=== PATIENT | female | born 1955 | race Caucasian/White ===

== ENCOUNTER 2022-02-16 10:25 | Day surgery (SDC) | payer MEDICARE, BC ==
[~2022-02-16 10:25] MED LIST: Lactated Ringers 1,000 ML IV SCH
[2022-02-16] MEDS ORDERED: Lactated Ringers 1,000 ML IV ONE (10:51)
[2022-02-16] MEDS ORDERED: DIPRIVAN 200 MG/20 ML IV ONE (11:34)
[2022-02-16] MEDS ORDERED: Versed 2 MG/2 ML Injection ONE (11:34)
[2022-02-16] MEDS ORDERED: Xylocaine-Mpf 2% 5 Ml Vial ONE (11:34)
[2022-02-16 12:58] VITALS: O2SAT 97
[2022-02-16 13:00] VITALS: BP 134/88; PULSE 67
--- NOTE | 2022-02-18 09:03 | OP ---
PROCEDURE DATE/TIME: 02/16/2022 1136 PREOPERATIVE DIAGNOSES: 1) Gastroesophageal reflux disease. 2) Family history of esophageal cancer. POSTOPERATIVE DIAGNOSES: 1) Hiatal hernia. 2) Gastroesophageal reflux disease with esophagitis. 3) Mild gastritis. PROCEDURE: EGD with biopsy. PROCEDURE PERFORMED BY: Erin Zamarripa M.D. ESTIMATED BLOOD LOSS: Minimal. ANESTHESIA: MAC. SPECIMENS: 1) Antral biopsy. 2) Distal esophagus biopsy. COMPLICATIONS: None. HISTORY: This is a patient who presents with gastroesophageal reflux disease symptoms. She also has a family history of esophageal cancer. She continues to have reflux despite medical treatment and so she was referred for EGD. Risks, benefits, alternatives discussed with her in detail. She understands, agrees and would like to proceed. Her H&P and consent reviewed and completed. DESCRIPTION OF PROCEDURE: A complete time out was performed. The patient was laid in the left lateral decubitus position. Anesthesia induced. The scope was then inserted into the mouth, oropharynx down into the esophagus, stomach and to the approximate second portion of the duodenum. The duodenum was normal. The scope was carefully withdrawn back into the stomach. The patient had some subtle mild gastritis mainly in the antrum and the lower body of the stomach. On retroflex view she does have an obvious hiatal hernia this is small sliding type. She did not have any ulcerations or masses in her stomach. We took antral biopsies and sent these to pathology. Confirmed that the sites were hemostatic. The scope is then withdrawn back into the distal esophagus. She does have some mild reflux changes here. She does not have any significant signs of advanced Dickey's disease but due to her clinical findings and family history I did take some biopsies at the distal esophagus to rule out early Dickey's disease. These sites are hemostatic. The scope was further withdrawn and the remainder of her esophagus is normal. Please note that her gastroesophageal junction is approximately is at approximately 37 cm. PLAN: The final plan regarding next EGD will be based on the patient's symptoms and her final pathology report. We have also discussed with the patient lifestyle and diet changes to decrease her reflux disease and she will be following up with me in the office as well.
== END 2022-02-16 13:00 | disposition home or self-care (01) ==
LOC: SDC 10:25
PROVIDERS: ATTEND Surgery
DX: K44.9 Diaphragmatic hernia without obstruction or gangrene (principal); K29.70 Gastritis, unspecified, without bleeding; K21.9 Gastro-esophageal reflux disease without esophagitis; Z80.0 Family history of malignant neoplasm of digestive organs
CPT/HCPCS: J2250; J2704

== ENCOUNTER 2022-05-18 10:18 | Day surgery (SDC) | payer MEDICARE, BC ==
[2022-05-18] MEDS ORDERED: Lactated Ringers 1,000 ML IV SCH (10:30)
[2022-05-18] MEDS ORDERED: Lactated Ringers 1,000 ML IV ONE ×2 (10:30→13:12)
[2022-05-18] MEDS ORDERED: DIPRIVAN 200 MG/20 ML IV ONE ×3 (12:41→13:09)
[2022-05-18 14:30] VITALS: BP 163/94; PULSE 67; O2SAT 98
--- NOTE | 2022-05-21 09:46 | OP ---
PROCEDURE DATE/TIME: 05/18/2022 1236 PREOPERATIVE DIAGNOSES: 1) History of difficult and incomplete colonoscopy as well as colonoscopy with poor prep. 2) History of polyps. POSTOPERATIVE DIAGNOSES: 1) Internal and external severe hemorrhoidal disease with benign anal tag. 2) Colon polyp. 3) Tortuous colon. 4) Poor prep. PROCEDURE: Colonoscopy with cold forceps polypectomy. PROCEDURE PERFORMED BY: Erin Zamarripa M.D. ANESTHESIA: MAC. ESTIMATED BLOOD LOSS: None. COMPLICATIONS: None. SPECIMEN: None. HISTORY: This is a 67-year-old who has had relatively recent colonoscopies. Her first colonoscopy was incomplete due to significant tortuosity as well as poor prep and then her second colonoscopy had poor prep as well with polyps and she was recommended to have another colonoscopy in a short interval due to the poor preparation. The patient was seen preoperatively. Her H&P and consent reviewed with her and confirmed. All questions answered to the patient's satisfaction. DESCRIPTION OF PROCEDURE: She was then brought back to the endoscopy suite, laid in left lateral decubitus position. A complete time out performed. First a rectal inspection and then exam was done. The patient had some benign anal tag tissue. She also had severe external and hemorrhoidal disease. She does not have any blood at this time and there were no concerning masses. The scope was then inserted and gently advanced to the level of the cecum. The patient's colon was quite tortuous with angulation. I used a very minimal air approach. We went to the cecum and this looked very well and the scope was able to be gently navigated to the cecum without any significant difficulties. The patient's prep was fair. She did have quite a bit of stool throughout her colon. Unfortunately, the prep in the cecum was very poor and not satisfactory so it looked fair in most places but the cecum was definitely very poor. She had other areas of her colon that the prep was not ideal as well. A significant lesion could be missed in an area like the cecum where the prep was very poor. Otherwise, I was able to see a quite a bit of her colonic mucosa throughout the rest of the colon. I did use copious irrigation in an attempt to get a nicer view. However, the cecum did have significant solid food matter and debris that was not able to be moved, suctioned or irrigated. As we withdrew the scope, I did find one small descending polyp in the proximal descending colon that was small and taken with cold forceps this looked benign. It was taken in its entirety and the site was hemostatic and this was sent to pathology. The scope was then fully withdrawn. I did not find any large masses or other issues here. After the procedure, I discussed these results with her family. I think we can do two things. We can do another short interval colonoscopy in approximately six months and do a further extended prep or we can send her for a CT colonography or potentially a barium enema study. I have discussed some of these options with her family and the patient and the family will think about what additional testing they would like since we are not getting a great view here in all areas of the colon and then we will make our plan. The patient tolerated the procedure very well. There were no immediate complications. She will be following up with me post-procedure.
== END 2022-05-18 14:35 | disposition home or self-care (01) ==
LOC: SDC 10:18
PROVIDERS: ATTEND Surgery
DX: Z09 Encounter for follow-up examination after completed treatment for conditions other than malignant neoplasm (principal); Z86.010 Personal history of colon polyps; K64.8 Other hemorrhoids; K64.4 Residual hemorrhoidal skin tags; K63.5 Polyp of colon
CPT/HCPCS: J2704